=== PATIENT | female | born 1975 | race Two or more races ===

== ENCOUNTER 2017-07-08 17:59 | Emergency (ER) | payer BC, OTHER ==
[~2017-07-08] VITALS: Ht 162.6 cm; Wt 52.2 kg
[2017-07-08 18:00] VITALS: BP 119/80
== END 2017-07-08 19:07 | disposition home or self-care (01) ==
LOC: ER 18:00
DX: L03.116 Cellulitis of left lower limb (principal)
CPT/HCPCS: A4606; Z7502; Z7610

== ENCOUNTER 2019-11-21 11:59 | Emergency (ER) | payer OTHER ==
[~2019-11-21] VITALS: Ht 162.6 cm; Wt 54.4 kg
--- NOTE | 2019-11-21 12:14 | NUR ---
BIBS W/ TO ER BED 3. AAOX4. NOT IN RESP DISTRESS. AMBULATORY. CAME IN FOR RLQ ABDOMINAL PAIN SINCE YESTERDAY AND NOW EXTENDING TO THE GEN ABDOMINAL AREA. PT REPORTS PAIN SHARP SHOOTING. DENIES ANY NVD. WAS AT BEDSIDE FOR EVAL. AWAITING ORDERS
--- NOTE | 2019-11-21 12:16 | NUR ---
URINE COLLECTED AND SENT TO LAB
[2019-11-21] MEDS ORDERED: ONDANSETRON HCL/PF 4 MG/2 ML VIAL ONE (12:27)
[2019-11-21] MEDS ORDERED: KETOROLAC TROMETHAMINE INJ 30 MG/ML VIAL ONE (12:27)
[2019-11-21] MEDS ORDERED: KETOROLAC TROMETHAMINE INJ 30 MG/ML VIAL IV ONE (12:30)
[2019-11-21] MEDS ORDERED: ONDANSETRON HCL/PF 4 MG/2 ML VIAL IVP ONE (12:30)
[2019-11-21] MEDS ORDERED: IV NS 0.9% 1,000 ML BAG IV ONE (12:30)
[2019-11-21 13:04] LABS: APPEARANCE,URINE CLEAR (CLEAR); BILIRUBIN,URINE NEGATIVE (NEGATIVE); BLOOD, URINE NEGATIVE Ery/uL (NEGATIVE); COLOR,URINE DARK YELLO (YELLOW); KETONES,URINE NEGATIVE (NEGATIVE); LEUKOCYTE ESTERASE ,URINE NEGATIVE (NEGATIVE); NITRITE, URINE NEGATIVE (NEGATIVE); PROTEIN,URINE NEGATIVE (NEGATIVE); UGLUCOSE NEGATIVE (NEGATIVE); UROBILINOGEN,URINE 0.2 EU/dL (0.2)
[2019-11-21 13:07] LABS: BASOPHILS # (AUTO) 0.1 /CMM (0.0-0.2); BASOPHILS % (AUTO) 0.5 % (0.0-2.0); EOSINOPHILS % (AUTO) 0.5 % (0.0-6.0); HEMATOCRIT 45 % (33-45); HEMOGLOBIN 14.6 g/dL (11.5-14.8); LYMPHOCYTES # (AUTO) 1.5 /CMM (0.8-4.8); LYMPHOCYTES % (AUTO) 8.6 % (20.0-44.0); MEAN CORPUSCULAR HGB CONC 33 g/dl (31.0-36.0); MEAN CORPUSCULAR VOLUME 91 fL (82-100); MONOCYTES % (AUTO) 5.8 % (2.0-12.0); NEUTROPHILS # (AUTO) 14.7 /CMM (1.8-8.9); NEUTROPHILS % (AUTO) 84.6 % (43.0-81.0); PLATELET COUNT (AUTO) 247 /CMM (150-450); RED BLOOD CELL COUNT(AUTO) 4.88 MIL/uL (4.0-5.2); WHITE BLOOD COUNT (AUTO) 17.4 K/uL (4.3-11.0)
[2019-11-21 13:21] LABS: CALCIUM, SERUM 9.3 mg/dL (8.5-10.1); CREATININE 0.7 mg/dL (0.6-1.3); POTASSIUM 3.8 mmol/L (3.5-5.1)
[2019-11-21 13:34] LABS: ALBUMIN 4.1 g/dL (3.4-5.0); BILIRUBIN,DIRECT 0.1 mg/dL (0.0-0.2); BILIRUBIN,TOTAL 0.7 mg/dL (0.2-1.0); TOTAL PROTEIN, SERUM 7.6 g/dL (6.4-8.2)
--- NOTE | 2019-11-21 13:50 | NUR ---
PT IS IN CT
--- NOTE | 2019-11-21 14:47 | NUR ---
Patient discharged to home in stable condition. Written and verbal after care instructions given. Patient verbalizes understanding of instruction.IV removed. Catheter intact and site benign. Pressure and 4x4 applied to site. No bleeding noted. Pt ambulatory with a steady gait
[2019-11-21 14:48] VITALS: BP 95/58
== END 2019-11-21 14:53 | disposition home or self-care (01) ==
LOC: ER 12:06
DX: R10.2 Pelvic and perineal pain (principal); D25.9 Leiomyoma of uterus, unspecified; R11.0 Nausea; Z90.89 Acquired absence of other organs
CPT/HCPCS: 36415; 74176; 76856; 80048; 80076; 81001; 84703; 85025; 96374; 96375; 99285; J1885; J2405; J7030; 81000-TC